=== PATIENT | female | born 1960 | race Caucasian/White ===

== ENCOUNTER 2018-10-23 05:32 | Day surgery (SDC) | payer OTHER ==
[~2018-10-23] VITALS: Ht 172.7 cm; Wt 83.9 kg
--- NOTE | ~2018-10-23 | OP ---
PATIENT NAME: BHAVYA REDDY MEDICAL RECORD: [id number] :56 LOCATION:[facility] ADMISSION DATE: SURGEON: SAGE GUZMÁN MD DATE OF OPERATION: 10/23/2018 PREOPERATIVE DIAGNOSIS: Bilateral axillary soft tissue masses. POSTOPERATIVE DIAGNOSIS: Bilateral axillary soft tissue masses. PROCEDURE: Excision of bilateral soft tissue masses both 4 cm in greatest diameter. SURGEON: Sage Guzmán MD REPORT OF PROCEDURE: The patient's bilateral axilla were prepped and draped in sterile fashion. The left axilla was approached first. I made a skin incision on the inferior aspect of the axilla. Electrocautery was used to dissect through the subcutaneous tissue. We dissected all the way down to the axillary fascia. Above this fascia, there was this firm fatty tissue, most consistent with accessory breast tissue. A core of this tissue was removed, totaling about 4 cm in greatest diameter and it was about 1.5 cm deep. This core tissue was completely excised and the surrounding tissue appeared to be more consistent with normal fatty tissue. We inspected the area and assured there was no sign of any bleeding and any that was found was treated with electrocautery. We then packed this wound. We went to the right side. This fatty tissue was more on the superior aspect of the upper arm. A skin incision was made through a crease in this area. Electrocautery was used to dissect through the subcutaneous tissues. We dissected the subcutaneous fatty tissues off this fatty mass as we uncovered this mass and then we dissected around the mass and eventually went on the inferior aspect of the mass down towards the fascial layer. Once this mass was completely excised, it measured out at 4 cm in greatest diameter and it was approximately 2 cm in depth. The wound was then irrigated out with normal saline. Any bleeding that was found was treated with electrocautery. We packed this wound. We went back to the left side at this point, reinspected the area, the packing was removed. Any bleeding that was seen was treated with electrocautery. We then reapproximated the subcutaneous tissues with interrupted 3-0 Vicryl and the skin was closed with running subcutaneous 5-0 Monocryl. We approached the right side one last time, the packing was removed and we again inspected the area. Any bleeding that was found was treated with electrocautery. We then reapproximated the subcutaneous tissues with interrupted 3-0 Vicryl and the skin was closed with running subcutaneous 5-0 Monocryl. The wounds were then dressed with pressure dressings. COMPLICATIONS: None. CONDITION: Stable. ANESTHESIA: General endotracheal. BLOOD LOSS: Minimal. TRANSINT:[id number] Voice Confirmation ID: [id number] DOCUMENT ID: [id number] OPERATIVE REPORT [id number] BHAVYA REDDY CHRISTIAN MD CC: BELINDA NELSON [id number] DICTATION DATE: 10/23/18920 SLIP SHEETER: 10/23/18 [address] [facility] [address] [place] [address]
[~2018-10-23 05:32] MED LIST: AMABELZ 0.5 MG1 EACH PO
[2018-10-23 06:05] LABS: BASOPHILS 0.5 % (0-2); EOSINOPHILS 3.2 % (0-7); HEMATOCRIT 40.3 % (36.0-48.0); HEMOGLOBIN 13.5 g/dL (12-16); IMMATURE GRANULOCYTES 0.3 % (0-5); LYMPHOCYTES 28.9 % (15-50); MCH 31.3 pg (26.0-34.0); MCHC 33.5 g/dL (31.0-37.0); MCV 93.5 fL (80.0-100.0); MEAN PLATELET VOLUME 9.4 fL (7.4-10.4); MONOCYTES 13.4 % (2-11); NEUTROPHILS 53.7 % (40-80); PLATELET COUNT 206 10x3/uL (130-400); RBC 4.31 10x6/uL (4.00-5.40); RDW 12.5 % (11.5-14.5); WBC 3.8 10x3/uL (4.8-10.8)
[2018-10-23 06:25] LABS: CALC OSMOLALITY 283 mosm/kg (275-300); CALCIUM 8.9 mg/dL (8.5-10.1); CARBON DIOXIDE 28.7 mmol/L (21.0-32.0); CHLORIDE - SERUM 104 mmol/L (98-107); CREATININE - SERUM 0.7 mg/dL (0.6-1.3); GLUCOSE 105 mg/dL (74-106); POTASSIUM - SERUM 4.1 mmol/L (3.5-5.1); SODIUM 142 mmol/L (136-145); UREA NITROGEN 14 mg/dL (7-18); eGFR NON AFRICAN AMERICAN > 90 mL/min (90-120)
[2018-10-23 06:27] VITALS: BP 149/88; Ht 172.7 cm; Wt 83.9 kg
[2018-10-23] MEDS ORDERED: NORCO 10-325 TA1 TAB PO (09:15)
== END 2018-10-23 11:14 | disposition home or self-care (01) ==
LOC: D.OPS 05:32 → D.PAN 09:00 → D.OPS 09:15
PROVIDERS: Surgery
DX: D17.22 Benign lipomatous neoplasm of skin and subcutaneous tissue of left arm (principal); D17.21 Benign lipomatous neoplasm of skin and subcutaneous tissue of right arm; Z01.812 Encounter for preprocedural laboratory examination